=== PATIENT | female | born 1965 | race American Indian/Alaskan Native ===

== ENCOUNTER 2017-06-11 13:33 | Outpatient (CLI) | payer BC ==
--- NOTE | 2017-06-11 14:32 | XRay Report ---
Bilateral tib/fib: Leg pain. AP and lateral views bilaterally demonstrate unremarkable soft tissues, bony structures and joint. Impression: Normal exam.
== END 2017-06-11 13:34 | disposition home or self-care (01) ==
LOC: SPVIMAG 13:33
PROVIDERS: ATTEND Orthopaedic Surgery
DX: M79.604 Pain in right leg (principal); M79.605 Pain in left leg